=== PATIENT | male | born 1990 | race African-American/Black ===

== ENCOUNTER 2021-05-17 15:53 | Emergency (ER) | payer OTHER ==
[~2021-05-17] VITALS: Ht 170.2 cm; Wt 136.1 kg
[2021-05-17 16:14] VITALS: BP 137/76
[2021-05-17] MEDS ORDERED: IBUPROFEN 600 MG TABLET ONE (16:27)
[2021-05-17] MEDS ORDERED: IBUPROFEN 600 MG TABLET PO ONE (16:30)
== END 2021-05-17 17:37 | disposition home or self-care (01) ==
LOC: ER 16:35 → EDBD 16:35 → ER 17:37
DX: M54.2 Cervicalgia (principal)
CPT/HCPCS: 72040-TC